=== PATIENT | female | born 1975 | race American Indian/Alaskan Native ===

== ENCOUNTER 2024-12-29 08:20 | Outpatient (CLI) | payer BC | END 2024-12-29 08:21 | disposition home or self-care (01) | LOC: CSHMAMMO 08:20 | PROVIDERS: ATTEND Student in an Organized Health Care Education/Training Program | DX: Z12.31 Encounter for screening mammogram for malignant neoplasm of breast (principal); R92.1 Mammographic calcification found on diagnostic imaging of breast | CPT/HCPCS: 77063; 77067 ==

== ENCOUNTER 2025-01-04 13:15 | Outpatient (CLI) | payer BC | END 2025-01-04 13:16 | disposition home or self-care (01) | LOC: CSHMAMMO 13:15 | PROVIDERS: ATTEND Student in an Organized Health Care Education/Training Program | DX: R92.1 Mammographic calcification found on diagnostic imaging of breast (principal) | CPT/HCPCS: G0279 ==

== ENCOUNTER → 2025-01-12 | Day surgery (SDC) | payer BC | LOC: CSHMAMMO 07:38 | PROVIDERS: ATTEND Student in an Organized Health Care Education/Training Program | PROC: 0HBU3ZX Excision of Left Breast, Percutaneous Approach, Diagnostic (ICD-10-PCS; principal; 2025-01-12) | DX: D24.2 Benign neoplasm of left breast (principal); N60.22 Fibroadenosis of left breast; R92.0 Mammographic microcalcification found on diagnostic imaging of breast | CPT/HCPCS: 19081; 76098; 88305; A4648 ==